=== PATIENT | female | born 1990 | race African-American/Black ===

== ENCOUNTER 2022-06-05 00:34 | Emergency (ER) | payer OTHER ==
[~2022-06-05] VITALS: Ht 160 cm; Wt 81.6 kg
[2022-06-05 00:55] VITALS: BP 103/53; TEMP 97.6
== END 2022-06-05 01:40 | disposition home or self-care (01) ==
LOC: ED 00:34
DX: T18.128A Food in esophagus causing other injury, initial encounter (principal); X58.XXXA Exposure to other specified factors, initial encounter; Y92.89 Other specified places as the place of occurrence of the external cause
CPT/HCPCS: 99282